=== PATIENT | male | born 1990 | race African-American/Black ===

== ENCOUNTER 2016-09-04 11:57 | Emergency (ER) | payer MEDICARE, MEDICAID ==
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
[~2016-09-04 11:57] MED LIST: BACTRIM DS TABL1 TA1 PO; NO MEDICATIONS; PERCOCET 5-3251 TAB PO; SENNA S TABLET1 TAB PO
== END 2016-09-04 13:05 | disposition home or self-care (01) ==
LOC: CED 11:57 → CFTX 11:57
DX: S43.402A Unspecified sprain of left shoulder joint, initial encounter (principal); F17.200 Nicotine dependence, unspecified, uncomplicated; Y04.2XXA Assault by strike against or bumped into by another person, initial encounter; Y92.410 Unspecified street and highway as the place of occurrence of the external cause
CPT/HCPCS: 73030; 99283